=== PATIENT | female | born 1965 | race Caucasian/White ===

== ENCOUNTER → 2016-11-08 | Outpatient (CLI) | payer MEDICAID ==
--- NOTE | 2016-11-08 21:52 | CONS ---
DATE OF CONSULTATION: REASON FOR CONSULTATION: Sleep apnea. 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 The patient has been told by her spouse that she snores loud, and occasionally she stopped breathing and obviously there is a concern of her having obstructive sleep apnea. She is feeling more and more fatigued and sleepy during the day which is not difficult for her. She has a strong family history of obstructive sleep apnea and as her sister brother and father have NANDA. She goes to bed at 11:00 p.m., wakes up at 5:45 a.m. in the morning. She averages around 6 hours of sleep. On weekends she gets up at 8:30 a.m. She wakes up tired and sleepy. She does not fall asleep while driving or while doing her routine activities at the hospital. No restlessness in her lower extremities. No anxiety or depression. No claustrophobia. No sleepwalking or sleeptalking. No anxiety or panic attacks. PAST MEDICAL HISTORY: Hypertension, hyperlipidemia, and obesity. PAST SURGICAL HISTORY: Colonoscopy. DRUG ALLERGIES: Not known. Outpatient medication list includes: 1. Lisinopril. 2. Hydrochlorothiazide. 3. Simvastatin. 4. Metoprolol. SOCIAL HISTORY: Nonsmoker. No history of alcohol. No history of IV drugs. FAMILY HISTORY: Noncontributory. REVIEW OF SYSTEMS: Twelve-point review of systems was done and the positive findings were all mentioned above in the history of present illness. BP is 123/83, pulse 64, respirations 16, temperature 98.0, saturation 96% on room air. Weight is 205. Height is 64-1/2 inches. BMI is 34.6. Neck size 15-1/4. Edison score is 14. GENERAL APPEARANCE: Calm, comfortable. HEENT: Short neck, crowding posterior pharynx. Mallampati class IV. LUNGS: Clear to auscultation. HEART: Sounds are regular rate and rhythm. Normal S1, S2. ABDOMEN: Soft, nontender. No organomegaly. EXTREMITIES: No edema. No cyanosis, or clubbing. IMPRESSION: 1. Suspect obstructive sleep apnea, currently under investigation. 2. Mallampati class 4. 3. Edison score of 14. 4. Hypersomnia. 5. Hypertension. 6. Hyperlipidemia. PLAN: Proceed with a screening polysomnogram.
== END | disposition home or self-care (01) ==
LOC: SLEEP 15:26
PROVIDERS: ATTEND Internal Medicine Critical Care Medicine
DX: G47.33 Obstructive sleep apnea (adult) (pediatric) (principal); G47.10 Hypersomnia, unspecified; I10 Essential (primary) hypertension; E78.5 Hyperlipidemia, unspecified; Z79.899 Other long term (current) drug therapy
CPT/HCPCS: 99211

== ENCOUNTER → 2016-12-13 | Outpatient (CLI) | payer MEDICAID ==
--- NOTE | 2016-12-14 08:34 | WWHP ---
DATE OF SERVICE: 12/13/2016 CHIEF COMPLAINT: The patient is here for her routine gynecologic exam and mammogram. HPI: This is a 51-year-old, G2, P2 with an LMP of 11/22/16. She states periods have been very infrequent and had gone about 11 months since her last bleeding episode. She had about 4 months of hot flashes in 2016, but these seem to improve. She is status post tubal ligation. She is otherwise without complaints. PAST MEDICAL HISTORY: Chronic hypertension and elevated cholesterol. MEDICATIONS: 1. Lisinopril with hydrochlorothiazide 20/25 mg daily. 2. Simvastatin 40 mg daily. 3. Toprol XL 50 mg daily. ALLERGIES: No known drug allergies. 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 SOCIAL HISTORY: She denies tobacco and drug use and has 0 to 2 alcoholic drinks per week. 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 REVIEW OF SYSTEMS: She has lost about 10 pounds over the last year. She denies respiratory, cardiac, or GI problems. PHYSICAL EXAM: Blood pressure 110/75. Height 5 feet 5 inches. Weight 197 pounds. Temperature 97.9, pulse 57. This is a well-developed, well-nourished white female who is alert and oriented x3 in no acute distress. HEENT is within normal limits. NECK: Supple without mass or thyromegaly. CHEST AND LUNGS: Clear to auscultation. HEART: Regular rate and rhythm. Breasts are without mass or discharge. Axillary exam is negative for adenopathy. BACK: Negative for CVA tenderness. ABDOMEN: Soft, nontender, without palpable masses. PELVIC EXAM: Normal external genitalia. Cervix and vagina appear normal. There is no significant atrophy noted. There is no evidence of prolapse. No blood is seen within the vagina and there is no unusual discharge. There is no cervical motion tenderness. The uterus is midposition, nongravid size and nontender. There are no palpable adnexal masses or tenderness. Rectovaginal exam is negative for mass or tenderness and is negative for occult blood. EXTREMITIES: Nontender. IMPRESSION: 1. A 51-year-old perimenopausal female with infrequent menstrual bleeding and variable vasomotor symptoms during the past year. 2. Normal gynecologic exam. PLAN: 1. Pap smear was deferred since she had a normal one last year. 2. Self breast examination was discussed. 3. Mammogram will be done today. 4. The patient will keep a menstrual calendar and return if she is having problems. She was instructed to notify me if she is having more than one bleeding episode in one month, bleeding that lasts for more than 2 weeks, very heavy bleeding or if bleeding after 12 months of amenorrhea. She will also call if she is having moderate to severe vasomotor symptoms. 5. She will return in one year and p.r.n.
--- NOTE | 2016-12-15 07:37 | MM ---
Reason for exam: screening (asymptomatic). Last mammogram was performed 1 year and 2 months ago. History: Family history of breast cancer in mother at age 72 and premenopausal breast cancer in paternal aunt. Benign excisional biopsy of the right breast, 2000. Physical Findings: A clinical breast exam by your physician is recommended on an annual basis and results should be correlated with mammographic findings. MG 3D Screening Mammo W/Cad Bilateral CC and MLO view(s) were taken. Prior study comparison: October 20, 2015, bilateral MG screening mammo w CAD. October 08, 2014, bilateral MG screening mammo w CAD. The breast tissue is heterogeneously dense. This may lower the sensitivity of mammography. No significant changes when compared with prior studies. ASSESSMENT: Benign, BI-RAD 2 RECOMMENDATION: Routine screening mammogram of both breasts in 1 year.
== END | disposition home or self-care (01) ==
LOC: WWCWWP 15:55
PROVIDERS: ATTEND Obstetrics & Gynecology
DX: Z12.31 Encounter for screening mammogram for malignant neoplasm of breast (principal)
CPT/HCPCS: 77063; G0202

== ENCOUNTER → 2017-01-16 | Outpatient (CLI) | payer MEDICAID ==
--- NOTE | 2017-01-16 16:46 | ECHOS ---
DATE OF SERVICE: 01/16/2017 AGE: 51Y SEX: F HT: 65 WT: 195 lbs. Protocol Albert: Others: Stress echo Stage: 3 Dur. of Exercise: 8:15 *Heart Rate Blood Pressure *Rest: 72 Rest: 137/85 * *Max. Achieved: 150 Maximum BP: 181/87 85% PMHR: 142 100% PMHR: 167 *METS: 9.4 INDICATIONS: Chest pain. MEDICATIONS: Toprol, Lisinopril, aspirin, Zocor. Patient was exercised for a total period of 8 minutes and 15 seconds. Peak heart rate of 150 was achieved. Maximum blood pressure of 181/87 mmHg was noted. Resting EKG shows normal sinus rhythm with normal AR interval and QRS duration and normal ST-T waves. No ST-segment depression suggestive of ischemia is noted. The baseline echocardiographic images reveal normal left ventricular chamber size with normal left ventricular systolic function. In the immediate post-exercise period, normal increase in the wall thickness and contractility is noted. FINAL IMPRESSION: This stress echocardiographic study is negative for stress-induced ischemia. EKG portion of the stress test is not suggestive of ischemia. Patient's exercise tolerance is normal.
== END | disposition home or self-care (01) ==
LOC: RADNMMAIN 09:54
PROVIDERS: ATTEND Internal Medicine
DX: R07.9 Chest pain, unspecified (principal); I10 Essential (primary) hypertension
CPT/HCPCS: 93017; 93350

== ENCOUNTER → 2017-01-24 | Outpatient (CLI) | payer MEDICAID ==
--- NOTE | 2017-01-24 20:16 | PN ---
A 51-year-old female patient diagnosed having mild obstructive sleep apnea with an AHI of 10.8, worse during REM and worse in a supine body position. The patient underwent a successful CPAP titration. Today she is coming in for a CPAP compliancy followup. On today's evaluation, the patient feels better. She is not having any morning headaches. She is waking up more refreshed and she is benefiting from the treatment. I checked her CPAP machine and she is set at a pressure of 10 cm of water with a C-Flex of 3 and her 30-day compliance showed an average CPAP use of 6.9 hours per night. Leak factor is only at 2 L and her AHI while on treatment is down to 0.8. She has no specific complaints. She is compliant. She is maintaining her own body weight, although she is interested in weight loss. BP is 131/88, pulse 66, respirations 16, temperature 98.2 Weight is 201 and saturation 98% on room air. GENERAL APPEARANCE: Calm, comfortable. No acute distress. HEENT: Negative for JVD. There is no goiter or neck mass. LUNGS: Clear to auscultation. Heart sounds are regular rate and rhythm. Normal S1, S2. No S3. No S4. No murmurs. ABDOMEN: Soft, nontender. No organomegaly. EXTREMITIES: No edema. No cyanosis or clubbing. REVIEW OF SYSTEMS: Twelve-point review of systems was done and the positive findings were all mentioned above in the history of present illness. IMPRESSION: Symptomatic obstructive sleep apnea, mild, currently receiving successful continuous positive airway pressure therapy with a pressure of 10 cm of water. PLAN: 1. The patient is compliant with her treatment and she is having successful treatment. She is benefiting also from the treatment. Encourage weight loss. Will change the CPAP to an auto mode with a pressure minimum of 4 and maximum of 10 and this will allow the pressure patient to be treated with lower pressures should she lose weight in the future. 2. Will re-evaluate the patient in a year's time and make further adjustments accordingly. For now, her treatment is successful and will continue to follow.
== END | disposition home or self-care (01) ==
LOC: SLEEP 15:54
PROVIDERS: ATTEND Internal Medicine Critical Care Medicine
DX: G47.33 Obstructive sleep apnea (adult) (pediatric) (principal)

== ENCOUNTER → 2018-01-09 | Outpatient (CLI) | payer MEDICAID ==
[2018-01-09 14:24] VITALS: BP 118/78; PULSE 64; RESP 18; TEMP 97.4; BMI 31.9
--- NOTE | 2018-01-09 15:16 | P.HPOB ---
History of Present Illness H&P Date: 01/09/18 Chief Complaint: The patient is here for her routine gynecologic exam and mammogram. This is a 52-year-old G to P2 with an LMP of 12/07/2017. The patient was felt to be perimenopausal last year as her periods were spacing out. In the later part of 2016 she went approximately 5 months without vaginal bleeding and also had hot flashes. During September and October she had menstrual periods that were about monthly. In November she had a fairly normal menstrual flow during the 1st week of November. She then had spotting for 3 days in the middle of the month and 5 days a spotting at the end of the month. In December she had spotting from 12/07/2017 to 12/19/2017. She is not having any hot flashes at this time. She is status post tubal ligation. Review of Systems She has lost about 5 pounds over the last year. She has been trying to lose weight with diet and exercise. She denies respiratory, cardiac, or G.I. problems. Past Medical History Past Medical History: Hyperlipidemia, Hypertension Additional Past Medical History / Comment(s): Past OB history: 2 vaginal deliveries. 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 History of Any Multi-Drug Resistant Organisms: None Reported Past Surgical History: Tubal Ligation Additional Past Surgical History / Comment(s): Lipoma removed off right breast. Colonoscopy 2013. 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 - Past Family History Mother Family Medical History: Cancer (Breast cancer), Hypertension, Thyroid Disorder Father Family Medical History: Coronary Artery Disease (CAD), Diabetes Mellitus Medications and Allergies Home Medications Medication Instructions Recorded Confirmed Type Lisinopril-Hctz 20-25 mg 1 tab PO DAILY 01/09/18 01/09/18 History [Zestoretic 20-25] Simvastatin [Zocor] 40 mg PO HS 01/09/18 01/09/18 History Allergies Allergy/AdvReac Type Severity Reaction Status Date / Time No Known Allergies Allergy Verified 01/09/18 14:28 Exam - Vital Signs Vital signs: Vital Signs Temp Pulse Resp BP 01/09/18 14:17 97.4 F L 64 18 118/78 Intake and Output 01/09/18 01/09/18 01/09/18 06:59 14:59 22:59 Other: Weight 87.09 kg Height 5'5", BMI 32.0 This is a well-developed well-nourished white female who is alert and oriented times 3 in no acute distress. HEENT: Within normal limits. NECK: Supple without mass or thyromegaly. CHEST AND LUNGS: Clear to auscultation. HEART: Regular rate and rhythm. BREASTS: Are without mass or discharge. AXILLARY EXAM: Negative for adenopathy. BACK: Negative for CVA tenderness. ABDOMEN: Soft, nontender, without palpable masses. PELVIC EXAM: Normal external genitalia. Cervix and vagina appear normal. There is no unusual discharge. There is no evidence of prolapse. The uterus is midposition, nongravid size and nontender. There are no palpable adnexal masses or tenderness. RECTAL EXAM: rectovaginal exam is negative for mass or tenderness and is negative for occult blood. EXTREMITIES: Nontender. IMPRESSION: 1. 52-year-old perimenopausal female with normal gynecologic exam. 2. Previous oligomenorrhea with recent dysfunctional uterine bleeding. PLAN: 1. Pap smear was performed. 2. Self breast examination was discussed. 3. Screening mammogram will be done today. 4. The patient will be scheduled for an endometrial biopsy. If benign findings , consider cyclic progestin therapy. 5. The patient will continue to keep a menstrual calendar. 6. She will return in one year and PRN.
--- NOTE | 2018-01-11 09:06 | MM ---
Reason for exam: screening (asymptomatic). Last mammogram was performed 1 year and 1 month ago. History: Family history of breast cancer in mother at age 72 and premenopausal breast cancer in paternal aunt. Benign excisional biopsy of the right breast, 2000. Physical Findings: A clinical breast exam by your physician is recommended on an annual basis and results should be correlated with mammographic findings. MG 3D Screening Mammo W/Cad Bilateral CC and MLO view(s) were taken. Prior study comparison: December 13, 2016, bilateral MG 3d screening mammo w/cad. October 20, 2015, bilateral MG screening mammo w CAD. There are scattered fibroglandular densities. No significant changes when compared with prior studies. ASSESSMENT: Benign, BI-RAD 2 RECOMMENDATION: Routine screening mammogram of both breasts in 1 year.
== END ==
LOC: WWCWWP 14:03
PROVIDERS: ATTEND Obstetrics & Gynecology
DX: Z12.31 Encounter for screening mammogram for malignant neoplasm of breast (principal)
CPT/HCPCS: 77063; 77067

== ENCOUNTER → 2018-01-17 | Day surgery (SDC) | payer MEDICAID ==
[2018-01-17 12:40] VITALS: BP 125/78; PULSE 57; RESP 18; TEMP 96.2; BMI 31.8
--- NOTE | 2018-01-17 13:12 | P.PCN ---
Date of Procedure: 01/17/18 Preoperative Diagnosis: Dysfunctional uterine bleeding Postoperative Diagnosis: Dysfunctional uterine bleeding Procedure(s) Performed: Endometrial biopsy Anesthesia: none Surgeon: Vinnie Padilla Estimated Blood Loss (ml): 0 Pathology: other (Endometrial tissue) Condition: stable Disposition: same day Indications for Procedure: This is a 52-year-old who has experienced dysfunctional uterine bleeding during the past 2 months. This was after 5 months of amenorrhea and then 2 months of monthly bleeding. Most recently she had light vaginal bleeding from 12/07/2017 - 12/19/2017. She is status post tubal ligation. Operative Findings: The uterus is mid positioned and non-gravid size. The uterus sounded to 8 cm. There are no palpable adnexal masses or tenderness. Description of Procedure: The endometrial biopsy procedure was described to the patient. All of her questions were answered. The patient was placed in the lithotomy position. Bimanual examination was performed. The uterus is mid-positioned and is non- gravid size. The speculum was inserted and the cervix and vagina were prepped with betadine solution. There is no abnormal discharge or blood noted. The anterior lip of the cervix was grasped within Allys Clamp. The 3mm endometrial biopsy curette was placed to the fundus without difficulty. The uterus sounded to 8 cm. A [id number] rotating motion was used and a scant amount of tissue was obtained. This was repeated times 1 and a small amount of tissue was obtained. The tissue was sent for pathological examination. The patient tolerated the procedure well. There were no complications. The post procedure blood pressure was 127/86. Post procedure instructions were given to the patient. If the pathological findings are benign, we'll consider observation or possible cyclic progestogen treatment.
--- NOTE | 2018-01-23 17:19 | P.PN ---
Progress Note - Text Progress Note Date: 01/23/18 Endometrial biopsy results from 01/17/2018 were discussed with the patient by phone. The pathology findings were benign with ciliated cell metaplasia. I discussed this with Dr. Mckeon, the pathologist, who states this is not cancerous or precancerous. We will follow the patient conservatively without intervention at this time. She will return if she is having recurrent abnormal vaginal bleeding. If this is the case will consider referral for hysteroscopy and D&C.
== END ==
LOC: WWCWWP 11:59
PROVIDERS: ATTEND Obstetrics & Gynecology
DX: N85.8 Other specified noninflammatory disorders of uterus (principal); Z98.51 Tubal ligation status
CPT/HCPCS: 88305

== ENCOUNTER → 2019-03-05 | Outpatient (CLI) | payer MEDICAID ==
[2019-03-05 14:42] VITALS: BP 152/98; PULSE 72; RESP 18; TEMP 98.2; BMI 33.7
--- NOTE | 2019-03-05 16:21 | P.HPOB ---
History of Present Illness H&P Date: 03/05/19 Chief Complaint: The patient is here for her routine gynecologic exam and ma mmogram. This is a 53-year-old with an LMP of 12/07/2018. Menstrual periods have been in frequent over the past 2 years. She underwent an endometrial biopsy on 01/17/2018 because of dysfunctional uterine bleeding and this was benign. Since then she has had 2 episodes of spotting in March and May 2018. She also had one normal menstrual period on 12/07/2018. Hot flashes have been progressively getting worse and are fairly severe. She is also noticed mood problems and can cry very easily. She denies any suicidal ideation. She is otherwise without complaints. Review of Systems She is getting about 11 pounds over the last year. She denies respiratory, cardiac, or G.I. problems. Past Medical History Past Medical History: Hyperlipidemia, Hypertension Additional Past Medical History / Comment(s): Past OB history: 2 vaginal deliveries. 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 History of Any Multi-Drug Resistant Organisms: None Reported Past Surgical History: Tubal Ligation Additional Past Surgical History / Comment(s): Lipoma removed off right breast. Colonoscopy 2013. 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 - Past Family History Mother Family Medical History: Cancer, Hypertension, Thyroid Disorder Additional Family Medical History / Comment(s): Breast CA. Father Family Medical History: Coronary Artery Disease (CAD), Diabetes Mellitus Medications and Allergies Home Medications Medication Instructions Recorded Confirmed Type Lisinopril-Hctz 20-25 mg 1 tab PO DAILY 01/09/18 03/05/19 History [Zestoretic 20-25] Simvastatin [Zocor] 40 mg PO HS 01/09/18 03/05/19 History Allergies Allergy/AdvReac Type Severity Reaction Status Date / Time No Known Allergies Allergy Verified 03/05/19 14:42 Exam Vital Signs Temp Pulse Resp BP Pulse Ox 03/05/19 14:34 98.2 F 72 18 152/98 98 Intake and Output 03/05/19 03/05/19 03/05/19 06:59 14:59 22:59 Other: Weight 92.079 kg Height 5'5", weight 203 pounds, BMI 33.8. This is a well-developed well-nourished heavyset white female who is alert and oriented times 3 in no acute distress. HEENT: Within normal limits. NECK: Supple without mass or thyromegaly. CHEST AND LUNGS: Clear to auscultation. HEART: Regular rate and rhythm. BREASTS: Are without mass or discharge. AXILLARY EXAM: Negative for adenopathy. BACK: Negative for CVA tenderness. ABDOMEN: Soft, nontender, without palpable masses. PELVIC EXAM: Normal external genitalia with minimal atrophy. Cervix and vagina appear normal with minimal atrophy. There is no unusual discharge. There is no evidence of prolapse. The uterus is midposition, nongravid size and nontender. There are no palpable adnexal masses or tenderness. RECTAL EXAM: rectovaginal exam is negative for mass or tenderness and is negative for occult blood. EXTREMITIES: Nontender. IMPRESSION: 1. Perimenopausal female with worsening vasomotor symptoms and mood disorder as sociated with the menopause. 2. Oligomenorrhea consistent with perimenopause PLAN: 1. Pap smear was deferred since she had a negative Pap smear on 01/09/2018. 2. Breast awareness was discussed with the patient. 3. Screening mammogram will be done today. 4. Osteoporosis prevention was discussed. I have stressed the importance of adequate calcium, vitamin D and regular exercise. Recommended amounts of calcium and vitamin D were also discussed. 5. We have had a long discussion regarding menopausal symptoms and possible treatments. She understands that for milder symptoms we would like to avoid medications and hormonal treatment. She feels her symptoms are quite severe and would like to have some type of treatment. We discussed options such as hormone replacement therapy, clonidine and SSRI treatment. Based on her symptoms I feel she would be a good candidate for low-dose fluoxetine (Brisdelle) 7.5 mg PO daily. We have discussed possible side effects including weight gain and suicidal thoughts. She was instructed to call if she has any problems such as worsening symptoms or suicidal thoughts. The electronic prescription will be sent to [facility] pharmacy in [facility]. 6. She will continue to keep an menstrual calendar and cause menstrual problems. 7. She was instructed to follow-up in approximately one month for a recheck, one year for her routine gynecologic exam, and PRN.
--- NOTE | 2019-03-06 10:01 | MM ---
Reason for exam: screening (asymptomatic). Last mammogram was performed 1 year and 2 months ago. History: Family history of breast cancer in mother at age 72 and premenopausal breast cancer in paternal aunt. Benign excisional biopsy of the right breast, 2000. Physical Findings: A clinical breast exam by your physician is recommended on an annual basis and results should be correlated with mammographic findings. MG 3D Screening Mammo W/Cad Bilateral CC and MLO view(s) were taken. Prior study comparison: January 09, 2018, bilateral MG 3d screening mammo w/cad. December 13, 2016, bilateral MG 3d screening mammo w/cad. There are scattered fibroglandular densities. There is no discrete abnormality. No significant changes when compared with prior studies. ASSESSMENT: Negative, BI-RAD 1 RECOMMENDATION: Routine screening mammogram of both breasts in 1 year.
== END | disposition home or self-care (01) ==
LOC: WWCWWP 14:04
PROVIDERS: ATTEND Obstetrics & Gynecology
DX: Z12.31 Encounter for screening mammogram for malignant neoplasm of breast (principal)
CPT/HCPCS: 77063; 77067

== ENCOUNTER → 2020-03-31 | Outpatient (CLI) | payer MEDICAID ==
[2020-03-31 16:10] VITALS: BP 128/87; PULSE 74; RESP 18; TEMP 98.5
--- NOTE | 2020-03-31 16:59 | P.HPOB ---
History of Present Illness H&P Date: 03/31/20 Chief Complaint: The patient is here for her routine gynecologic exam. This is a 54-year-old with an LMP of December 2019. The patient's prior menstrual period was 10 months before her LMP. She states she has never gone 12 4 months without a menstrual period. Her last 3 menstrual periods have been about 10 months apart. She does have mild hot flashes which are tolerable. Her LMP was like a light period and not prolonged. She is status post tubal ligation. Review of Systems The patient has lost 3 pounds over the last year. She denies respiratory, cardiac, or G.I. problems. Past Medical History Past Medical History: Hyperlipidemia, Hypertension Additional Past Medical History / Comment(s): Vitiligo since she was a teenager. Past OB history: 2 vaginal deliveries. 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 History of Any Multi-Drug Resistant Organisms: None Reported Past Surgical History: Tubal Ligation Additional Past Surgical History / Comment(s): Lipoma removed off right breast. Colonoscopy 2013. 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 - Past Family History Mother Family Medical History: Cancer, Hypertension, Thyroid Disorder Additional Family Medical History / Comment(s): Breast CA. Father Family Medical History: Coronary Artery Disease (CAD), Diabetes Mellitus Medications and Allergies Home Medications Medication Instructions Recorded Confirmed Type Lisinopril-Hctz 20-25 mg 1 tab PO DAILY 01/09/18 03/31/20 History [Zestoretic 20-25] Simvastatin [Zocor] 40 mg PO HS 01/09/18 03/31/20 History Calcium Carbonate [Calcium] 600 mg PO DAILY 03/31/20 03/31/20 History Cholecalciferol [Vitamin D3 (25 3,000 unit PO DAILY 03/31/20 03/31/20 History Mcg = 1000 Iu)] Multivitamin [Multivitamins Adult 1 tab PO DAILY 03/31/20 03/31/20 History Gummies] Allergies Allergy/AdvReac Type Severity Reaction Status Date / Time No Known Allergies Allergy Verified 03/31/20 16:02 Exam Vital Signs Temp Pulse Resp BP Pulse Ox 03/31/20 16:06 98.5 F 74 18 128/87 99 Intake and Output 03/31/20 03/31/20 03/31/20 06:59 14:59 22:59 Other: Weight 90.718 kg Height 5 feet 3 inches, weight 200 pounds, BMI 35.4. This is a well-developed well-nourished heavyset white female who is alert and oriented times 3 in no acute distress. HEENT: Within normal limits. NECK: Supple without mass or thyromegaly. CHEST AND LUNGS: Clear to auscultation. HEART: Regular rate and rhythm. BREASTS: Are without mass or discharge. AXILLARY EXAM: Negative for adenopathy. BACK: Negative for CVA tenderness. ABDOMEN: Soft, nontender, without palpable masses. PELVIC EXAM: Normal external genitalia with minimal atrophy. Cervix and vagina appear normal and minimal atrophy. There is no unusual discharge. There is no evidence of prolapse. The uterus is midposition, nongravid size and nontender. There are no palpable adnexal masses or tenderness. RECTAL EXAM: Rectovaginal exam is negative for mass or tenderness and is negative for occult blood. EXTREMITIES: Nontender. Skin: There are areas of nonpigmented skin most noticeable on the inner thighs and feet bilaterally. This is consistent with vitiligo and she states it is been stable for many years. IMPRESSION: 1. 4-year-old perimenopausal female with normal gynecologic exam. 2. Oligomenorrhea 2 years status post a benign endometrial biopsy in 2018. PLAN: 1. Pap smear was performed. 2. Self breast awareness was discussed with the patient. 3. Screening mammogram is scheduled for 05/05/2020 and the order slip was given to the patient for this. 4. Osteoporosis prevention was discussed. I have stressed the importance of adequate calcium, vitamin D and regular exercise. Recommended amounts of calcium and vitamin D were also discussed. 5. The patient will continue to keep a menstrual calendar and call she's having menstrual problems including dysfunctional uterine bleeding prolonged menstrual periods or frequent menstrual periods. She will also call if she is having worsening vasomotor symptoms that are causing problems for her. If oligomenorrhea persists, we will consider getting a pelvic ultrasound to check endometrial thickness next year. 6. She was advised to return in one year for her annual well woman exam.
--- NOTE | 2020-04-07 17:38 | P.PN ---
Progress Note - Text Progress Note Date: 04/07/20 OUTPATIENT FOLLOW-UP NOTE TEST(S)/RESULTS: Pap smear from 03/31/2020 was negative. METHOD OF NOTIFICATION: The patient was notified by phone. PATIENT COMMENTS: The patient is happy to hear this result. DIAGNOSIS: Negative Pap smear. DISCUSSION: [] PLAN: She is scheduled for mammogram on 05/05/2020. She is aware of this. She was advised to return in one year for her annual well woman exam.
== END | disposition home or self-care (01) ==
LOC: WWCWWP 15:50
PROVIDERS: ATTEND Obstetrics & Gynecology
DX: Z53.9 Procedure and treatment not carried out, unspecified reason (principal)

== ENCOUNTER 2020-07-10 05:49 | Observation (INO) | payer MEDICAID ==
[2020-07-10] MEDS ORDERED: MORPHINE SULFATE 4 MG/ML SYRINGE IVP STA (06:06)
[2020-07-10] MEDS ORDERED: SODIUM CHLORIDE 0.9% 500 ML 500 ML IV ONE (06:07)
--- NOTE | 2020-07-10 06:10 | ED ---
Abdominal Pain HPI - General Chief Complaint: Abdominal Pain Stated Complaint: Abdominal pain Time Seen by Provider: 07/10/20 05:59 Source: patient Mode of arrival: ambulatory Limitations: no limitations - History of Present Illness Initial Comments: 54yo female presenting for cc of mid abdominal pain. pt states since monday she has had stabbing abdominal pain that does not radiate in the middle of abdomen near umbilicus. She endorses nausea however denies vomiting, diarrhea, constipation, fevers, dark or bloody stools, chest pain, shortness of breath. Denies urinary symptoms. Patient states that Monday when the pain originally began it was more intermittent and has now become more consistent over the past 6 hours, more constant in nature. Patient denies experiencing this in the past. Denies additional complaints or hx of diverticulitis. Patient appears uncomfortable with change of position. Patient BP elevated on arrival, otherwise vital signs are within acceptable limits and patient does not appear toxic. - Related Data Home Medications Medication Instructions Recorded Confirmed Lisinopril-Hctz 20-25 mg 1 tab PO DAILY 01/09/18 03/31/20 [Zestoretic 20-25] Simvastatin [Zocor] 40 mg PO HS 01/09/18 03/31/20 Calcium Carbonate [Calcium] 600 mg PO DAILY 03/31/20 03/31/20 Cholecalciferol [Vitamin D3 (25 3,000 unit PO DAILY 03/31/20 03/31/20 Mcg = 1000 Iu)] Multivitamin [Multivitamins Adult 1 tab PO DAILY 03/31/20 03/31/20 Gummies] Allergies Allergy/AdvReac Type Severity Reaction Status Date / Time No Known Allergies Allergy Verified 07/10/20 05:59 Review of Systems ROS Statement: Those systems with pertinent positive or pertinent negative responses have been documented in the HPI. ROS Other: All systems not noted in ROS Statement are negative. Past Medical History Past Medical History: Hyperlipidemia, Hypertension Additional Past Medical History / Comment(s): Vitiligo since she was a teenager. Past OB history: 2 vaginal deliveries. 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 History of Any Multi-Drug Resistant Organisms: None Reported Past Surgical History: Tubal Ligation Additional Past Surgical History / Comment(s): Lipoma removed off right breast. Colonoscopy 2013. Past Anesthesia/Blood Transfusion Reactions: No Reported Reaction Past Psychological History: No Psychological Hx Reported Smoking Status: Never smoker Past Alcohol Use History: Occasional Past Drug Use History: None Reported - Past Family History Mother Family Medical History: Cancer, Hypertension, Thyroid Disorder Additional Family Medical History / Comment(s): Breast CA. Father Family Medical History: Coronary Artery Disease (CAD), Diabetes Mellitus General Exam - General Exam Comments Initial Comments: General: The patient is awake and alert, in no distress Eye: +3 mm pupils are equal, round and reactive to light, extra-ocular movements are intact. No nystagmus. There is normal conjunctiva bilaterally. No signs of icterus. Cardiovascular: There is a regular rate and rhythm. No murmur, rub or gallop is appreciated. Respiratory: Lungs are clear to auscultation, respirations are non-labored, breath sounds are equal. No wheezes, stridor, rales, or rhonchi. Gastrointestinal: Soft, non-distended, periumbilical abdominal pain to palpation of the abdomen, slight McBurneys point tenderness. abdomen without masses or organomegaly noted. There is no rebound or guarding present. Musculoskeletal: Normal ROM, no tenderness. Strength 5/5. Sensation intact. Radial pulses equal bilaterally 2+. Neurological: A&O x 3. CN II-XII intact grossly, There are no obvious motor or sensory deficits. Coordination appears grossly intact. Speech is normal. Skin: Skin is warm and dry and no rashes or lesions are noted. Psychiatric: Cooperative, appropriate mood & affect, normal judgment. Limitations: no limitations Course Vital Signs 07/10/20 05:56 Temperature 98.5 F Pulse Rate 78 Respiratory 16 Rate Blood Pressure 155/86 O2 Sat by Pulse 100 Oximetry Medical Decision Making - Medical Decision Making 54-year-old feel presenting for 5 days of periumbilical pain. Worsening today more constant. Her umbilical slight right lower quadrant tenderness on exam. No leukcytosis. Pt does not appear toxic. Blood cultures pending. CT + appendicitis. No complication seen at this time. Patient will be admitted to general surgeon Dr. Whiting who is agreeable to admission recommending abx and will perform laparoscopic procedure during admission. Patient agreeable to care plan as well as admission. - Lab Data Result diagrams: 07/10/20 06:32 07/10/20 06:32 Lab Results 07/10/20 07/10/20 07/10/20 Range/Units 06:32 06:32 06:32 WBC 8.7 (3.8-10.6) k/uL RBC 4.52 (3.80-5.40) m/uL Hgb 13.2 (11.4-16.0) gm/dL Hct 39.5 (34.0-46.0) % MCV 87.4 (80.0-100.0) fL MCH 29.1 (25.0-35.0) pg MCHC 33.3 (31.0-37.0) g/dL RDW 12.4 (11.5-15.5) % Plt Count 191 (150-450) k/uL Neutrophils % 81 % Lymphocytes % 12 % Monocytes % 6 % Eosinophils % 1 % Basophils % 0 % Neutrophils # 7.0 (1.3-7.7) k/uL Lymphocytes # 1.0 (1.0-4.8) k/uL Monocytes # 0.5 (0-1.0) k/uL Eosinophils # 0.1 (0-0.7) k/uL Basophils # 0.0 (0-0.2) k/uL Sodium 137 (137-145) mmol/L Potassium 4.2 (3.5-5.1) mmol/L Chloride 100 (98-107) mmol/L Carbon Dioxide 30 (22-30) mmol/L Anion Gap 7 mmol/L BUN 17 (7-17) mg/dL Creatinine 0.76 (0.52-1.04) mg/dL Est GFR (CKD-EPI)AfAm >90 (>60 ml/min/1.73 sqM) Est GFR (CKD-EPI)NonAf 89 (>60 ml/min/1.73 sqM) Glucose 147 H (74-99) mg/dL Plasma Lactic Acid Adriel 1.8 (0.7-2.0) mmol/L Calcium 10.3 H (8.4-10.2) mg/dL Total Bilirubin 0.6 (0.2-1.3) mg/dL AST 20 (14-36) U/L ALT 19 (4-34) U/L Alkaline Phosphatase 71 (38-126) U/L Total Protein 7.2 (6.3-8.2) g/dL Albumin 4.6 (3.5-5.0) g/dL Amylase 48 (30-110) U/L Lipase 74 (23-300) U/L Disposition Clinical Impression: Appendicitis, Periumbilical abdominal pain, Nausea Disposition: ADMITTED IP TO THIS [facility] Condition: Stable Is patient prescribed a controlled substance at d/c from ED?: No Referrals: None,Stated [Primary Care Provider] - 1-2 days Time of Disposition: 07:14 Decision to Admit Reason: Admit from EC Decision Date: 07/10/20 Decision Time: 07:14
[2020-07-10] MEDS: SODIUM CHLORIDE 0.9% 1,000 ML IV SCH ×2 (06:35→20:14)
[2020-07-10] MEDS: ONDANSETRON 4 MG/2 ML VIAL IVP STA ×2 (06:36→11:07)
[2020-07-10 06:41] LABS: Basophils % (A) 0 %; Eosinophils # (A) 0.1 k/uL (0-0.7); Eosinophils % (A) 1 %; HCT 39.5 % (34.0-46.0); HGB 13.2 gm/dL (11.4-16.0); Lymphocytes % (A) 12 %; MCH 29.1 pg (25.0-35.0); MCHC 33.3 g/dL (31.0-37.0); MCV 87.4 fL (80.0-100.0); Mean Platelet Volume 9.1; Monocytes # (A) 0.5 k/uL (0-1.0); Monocytes % (A) 6 %; Neutrophils % (A) 81 %; Platelet Count 191 k/uL (150-450); RBC 4.52 m/uL (3.80-5.40); RDW 12.4 % (11.5-15.5); WBC 8.7 k/uL (3.8-10.6)
[2020-07-10 06:50] LABS: ALT 19 U/L (4-34); AST 20 U/L (14-36); African American GFR (CKD) >90 (>60 ml/min/1.73 sqM); Albumin 4.6 g/dL (3.5-5.0); Alkaline Phosphatase 71 U/L (38-126); Amylase 48 U/L (30-110); Anion Gap 7 mmol/L; Blood Urea Nitrogen 17 mg/dL (7-17); Calcium 10.3 mg/dL (8.4-10.2); Carbon Dioxide 30 mmol/L (22-30); Chloride 100 mmol/L (98-107); Glucose 147 mg/dL (74-99); Non-African American GFR(CKD) 89 (>60 ml/min/1.73 sqM); Potassium 4.2 mmol/L (3.5-5.1); Sodium 137 mmol/L (137-145); Total Bilirubin 0.6 mg/dL (0.2-1.3); Total Protein 7.2 g/dL (6.3-8.2)
[2020-07-10] MEDS ORDERED: PIPERACILLIN-TAZOBACTAM 3.375 GM in SODIUM CHLORIDE 0.9% 100 ML IVPB STA (07:14)
--- NOTE | 2020-07-10 07:18 | CT ---
EXAMINATION TYPE: CT abdomen pelvis w con DATE OF EXAM: 07/10/2020 HISTORY: Abd pain, periumbilical pain since Monday. CT DLP: 1549mGycm Automated Exposure Control for Dose Reduction was Utilized. CONTRAST: CT scan of the abdomen and pelvis is performed without oral but with IV Contrast, patient injected wi th 100 mL of Isovue 300. COMPARISON: CT abdomen and pelvis April 19, 2012 FINDINGS: LUNG BASES: No significant abnormality is appreciated. LIVER/GB: No significant abnormality is appreciated. PANCREAS: No significant abnormality is seen. SPLEEN: No significant abnormality is seen. ADRENALS: No significant abnormality is seen. KIDNEYS: Symmetric corticomedullary uptake and excretion from both kidneys without hydronephrosis see n bilaterally. BOWEL: Few diverticula in the proximal sigmoid colon. Appendix is abnormal ascending from cecum as is dilated up to 12 mm axial image 45, there is mild inflammatory change and prominent feeding vessels noted near axial image 47 along central or mesenteric aspect of the appendix. No free air. No well-fo rmed fluid collection or drainable abscess. UTERUS/ADNEXA: Anteverted uterus projects to the left of midline. Occasional scattered pelvic phlebol iths. LYMPH NODES: No greater than 1cm abdominal or pelvic lymph nodes are appreciated. OSSEOUS STRUCTURES: Mild facet arthropathy lower lumbar spine. OTHER: Mild calcified plaque abdominal aorta extends into branch vessels. IMPRESSION: CT findings consistent with a mild uncomplicated acute appendicitis as detailed above. Cortical results communicated to ordering ER physician via telephone at time of dictation. A Document Only message has been documented for Iam Ocampo in the [facility] Result system on 07/10/2020 7:15 AM, Message ID [id number].
[2020-07-10] MEDS ORDERED: NALOXONE 0.4 MG/ML 1 ML VIAL IV PRN (07:20)
[2020-07-10 07:29] LABS: Appearance,Urine Clear (Clear); Bilirubin,Urine Negative (Negative); Blood,Urine Negative (Negative); Color,Urine Light Yellow; Glucose,Urine (UA) Negative (Negative); Ketones,Urine Negative (Negative); Leukocyte Esterase,Urine Negative (Negative); Nitrite,Urine Negative (Negative); PH, Urine 6.5 (5.0-8.0); Protein,Urine Negative (Negative); Specific Gravity,Urine 1.018 (1.001-1.035); Urobilinogen,Urine <2.0 mg/dL (<2.0)
[2020-07-10] MEDS ORDERED: HEPARIN SODIUM,PORCINE 5,000 UNIT/ML 1 ML VIAL ONE (11:03)
[2020-07-10] MEDS ORDERED: ONDANSETRON 4 MG/2 ML VIAL ONE (11:05)
[2020-07-10] MEDS ORDERED: IV FLUID CONTINUATION 1,000 ML IV ONE (11:07)
[2020-07-10] MEDS ORDERED: DEXAMETHASONE SOD PHOS (MDV) 100 MG/10 ML VIAL IVP ONE (11:08)
[2020-07-10] MEDS ORDERED: HEPARIN SODIUM,PORCINE 5,000 UNIT/ML 1 ML VIAL SQ ONE (12:04)
--- NOTE | 2020-07-10 12:08 | P.GSHP ---
History of Present Illness H&P Date: 07/10/20 Chief Complaint: Acute appendicitis 54-year-old female presents complaining of abdominal pain that began Jero. Initially more mid abdominal now right lower quadrant. No nausea or vomiting or bowel changes. No fevers. White blood cell count is normal. CAT scan was perf ormed which showed evidence of acute appendicitis. - Review of Systems Comment: The patient denies any acute changes in vision or hearing, no dysphagia or odyn ophagia, no chest pain or shortness of breath, no dysuria or hematuria, no headache, no runny nose, no rectal bleeding or melena, no unexplained weight loss Past Medical History Past Medical History: Hyperlipidemia, Hypertension Additional Past Medical History / Comment(s): Vitiligo since she was a teenager. Past OB history: 2 vaginal deliveries. 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 History of Any Multi-Drug Resistant Organisms: None Reported Past Surgical History: Tubal Ligation Additional Past Surgical History / Comment(s): Lipoma removed off right breast. Colonoscopy 2013. Past Anesthesia/Blood Transfusion Reactions: Postoperative Nausea & Vomiting (PONV) Smoking Status: Never smoker - Past Family History Mother Family Medical History: Cancer, Hypertension, Thyroid Disorder Additional Family Medical History / Comment(s): Breast CA @ age 73. Hypothyroid. Still living. Father Family Medical History: Congestive Heart Failure (CHF), Coronary Artery Disease (CAD), Diabetes Mellitus, Renal Disease Additional Family Medical History / Comment(s): in Nov 2019. Medications and Allergies Home Medications Medication Instructions Recorded Confirmed Type Lisinopril-Hctz 20-25 mg 1 tab PO DAILY 01/09/18 07/10/20 History [Zestoretic 20-25] Simvastatin [Zocor] 40 mg PO HS 01/09/18 07/10/20 History Calcium Carbonate [Calcium] 600 mg PO DAILY 03/31/20 07/10/20 History Cholecalciferol [Vitamin D3 (25 2,000 unit PO DAILY 03/31/20 07/10/20 History Mcg = 1000 Iu)] Multivitamin [Multivitamins Adult 1 tab PO DAILY 03/31/20 07/10/20 History Gummies] Aspirin [Adult Low Dose Aspirin EC] 81 mg PO DAILY 07/10/20 07/10/20 History Minocycline HCl [Minocin] 100 mg PO HS 07/10/20 07/10/20 History Allergies Allergy/AdvReac Type Severity Reaction Status Date / Time No Known Allergies Allergy Verified 07/10/20 07:33 Surgical - Exam Vital Signs Temp Pulse Resp BP Pulse Ox 98.5 F 78 16 155/86 100 07/10/20 05:56 07/10/20 05:56 07/10/20 05:56 07/10/20 05:56 07/10/20 05:56 Physical exam: General: Well-developed, well-nourished HEENT: Normocephalic, sclerae nonicteric Abdomen: Right lower quadrant tenderness, nondistended Extremities: No edema Neuro: Alert and oriented Results - Labs 07/10/20 06:32 07/10/20 06:32 Abnormal Lab Results - Last 24 Hours (Table) 07/10/20 Range/Units 06:32 Glucose 147 H (74-99) mg/dL Calcium 10.3 H (8.4-10.2) mg/dL Diabetes panel 07/10/20 Range/Units 06:32 Sodium 137 (137-145) mmol/L Potassium 4.2 (3.5-5.1) mmol/L Chloride 100 (98-107) mmol/L Carbon Dioxide 30 (22-30) mmol/L BUN 17 (7-17) mg/dL Creatinine 0.76 (0.52-1.04) mg/dL Glucose 147 H (74-99) mg/dL Calcium 10.3 H (8.4-10.2) mg/dL AST 20 (14-36) U/L ALT 19 (4-34) U/L Alkaline Phosphatase 71 (38-126) U/L Total Protein 7.2 (6.3-8.2) g/dL Albumin 4.6 (3.5-5.0) g/dL Calcium panel 07/10/20 Range/Units 06:32 Calcium 10.3 H (8.4-10.2) mg/dL Albumin 4.6 (3.5-5.0) g/dL Pituitary panel 07/10/20 Range/Units 06:32 Sodium 137 (137-145) mmol/L Potassium 4.2 (3.5-5.1) mmol/L Chloride 100 (98-107) mmol/L Carbon Dioxide 30 (22-30) mmol/L BUN 17 (7-17) mg/dL Creatinine 0.76 (0.52-1.04) mg/dL Glucose 147 H (74-99) mg/dL Calcium 10.3 H (8.4-10.2) mg/dL Adrenal panel 07/10/20 Range/Units 06:32 Sodium 137 (137-145) mmol/L Potassium 4.2 (3.5-5.1) mmol/L Chloride 100 (98-107) mmol/L Carbon Dioxide 30 (22-30) mmol/L BUN 17 (7-17) mg/dL Creatinine 0.76 (0.52-1.04) mg/dL Glucose 147 H (74-99) mg/dL Calcium 10.3 H (8.4-10.2) mg/dL Total Bilirubin 0.6 (0.2-1.3) mg/dL AST 20 (14-36) U/L ALT 19 (4-34) U/L Alkaline Phosphatase 71 (38-126) U/L Total Protein 7.2 (6.3-8.2) g/dL Albumin 4.6 (3.5-5.0) g/dL Assessment and Plan (1) Appendicitis Narrative/Plan: Will proceed with laparoscopic appendectomy, possible open appendectomy at this time. Risks of bleeding, infection, dehiscence, hernia, abscess, conversion to an open procedure, bladder bowel or ureteral injury. She understands and wishes to proceed. Current Visit: Yes Status: Acute Code(s): K37 - UNSPECIFIED APPENDICITIS SNOMED Code(s): 74244460
[2020-07-10] MEDS ORDERED: LIDOCAINE 1% INJ 10MG/ML (20 ML MDV) ONE (12:18)
[2020-07-10] MEDS ORDERED: SUCCINYLCHOLINE CHLORIDE 100 MG/5 ML SYR IV ONE (12:18)
[2020-07-10] MEDS ORDERED: PROPOFOL 10 MG/ML 100 ML VIAL IV ONE (12:18)
[2020-07-10] MEDS ORDERED: fentaNYL (PF) 50 MCG/ML 2 ML AMP ONE (12:18)
[2020-07-10] MEDS ORDERED: ROCURONIUM BROMIDE 10 MG/ML 5 ML VIAL IV ONE (12:18)
[2020-07-10] MEDS ORDERED: MIDAZOLAM 2 MG/2 ML VIAL ONE (12:18)
[2020-07-10] MEDS ORDERED: ceFAZolin 1,000 MG VIAL IVPB ONE (12:45)
[2020-07-10] MEDS ORDERED: BUPIVACAINE (PF) 0.25% 30 ML VIAL SQ ONE (12:45)
[2020-07-10] MEDS ORDERED: HYDROcodone/APAP 5-325MG 1 EACH TAB PO PRN (13:14)
[2020-07-10] MEDS ORDERED: ACETAMINOPHEN TAB 325 MG TAB PO PRN (13:14)
--- NOTE | 2020-07-10 13:20 | P.OP ---
Date of Procedure: 07/10/20 Procedure(s) Performed: PREOPERATIVE DIAGNOSIS: Acute appendicitis POSTOPERATIVE DIAGNOSIS: Same PROCEDURE: Laparoscopic appendectomy SURGEON: Johanne EBL: Minimal ANESTHESIA: General COMPLICATIONS: None OPERATIVE PROCEDURE: The patient was brought and placed on the operating table in the supine position. The patient was placed under general anesthesia. The abdomen was prepped and draped in the usual sterile fashion. A small vertical infraumbilical incision was made. The fascia was retracted anteriorly with [place] forceps. The Veress needle was advanced into the peritoneal cavity. The saline drop test was normal. Insufflation took place to 15 mmHg. A 5 mm trocar was then placed. An additional 5 mm suprapubic trocar was placed under direct visualization as well as a 12 mm left lower quadrant trocar under direct visualization. The appendix was inspected. It was acutely inflamed. The mesoa ppendix was dissected. The base of the appendix was divided using a linear 45 mm intestinal stapler. The mesentery itself was dissected using the LigaSure device. The area was then irrigated. No further purulence or bleeding was seen. The appendix was brought out of the peritoneal cavity through the left lower quadrant trocar site using an Endo Catch bag. The fascia at the 12 mm site was closed using a [id number] 0 Vicryl stitch. The skin at all 3 sites was closed using 4-0 Monocryl sutures. Skin glue was then applied. DISPOSITION: Stable to recovery room
[2020-07-10] MEDS: HYDROmorphone 0.5 MG/0.5 ML SYRINGE IVP PRN ×4 (13:40→23:00)
[2020-07-10] MEDS: PIPERACILLIN-TAZOBACTAM 3.375 GM in SODIUM CHLORIDE 0.9% 100 ML IVPB SCH ×2 (15:56→23:00)
[2020-07-10] MEDS: FAMOTIDINE 20 MG TAB PO SCH (20:13)
[2020-07-10] MEDS: DOCUSATE 100 MG CAP PO SCH (20:13)
[2020-07-10] MEDS: HEPARIN SODIUM,PORCINE 5,000 UNIT/ML 1 ML VIAL SQ SCH (20:14)
[2020-07-11] MEDS: HYDROmorphone 0.5 MG/0.5 ML SYRINGE IVP PRN (04:41)
[2020-07-11] MEDS: HEPARIN SODIUM,PORCINE 5,000 UNIT/ML 1 ML VIAL SQ SCH ×2 (04:42→13:04)
[2020-07-11 08:26] VITALS: RESP 16
[2020-07-11] MEDS: PIPERACILLIN-TAZOBACTAM 3.375 GM in SODIUM CHLORIDE 0.9% 100 ML IVPB SCH (08:31)
[2020-07-11] MEDS ORDERED: ONDANSETRON 4 MG/2 ML VIAL IVP PRN (08:36)
[2020-07-11] MEDS: FAMOTIDINE 20 MG TAB PO SCH (08:42)
[2020-07-11] MEDS: DOCUSATE 100 MG CAP PO SCH (08:42)
--- NOTE | 2020-07-11 09:55 | P.PN ---
Progress Note - Text Progress Note Date: 07/11/20 The patient feels better. She is requesting home. On exam vital signs are stable. Abdomen is soft. Incisions is clean and intact. Status post laparoscopic Appendectomy. Patient will be discharged home today.
[2020-07-11 12:36] VITALS: BP 146/93; PULSE 57; TEMP 97.9
== END 2020-07-11 13:05 | disposition home or self-care (01) ==
LOC: EC 05:49 → 6PED 07:36
PROVIDERS: ADMIT Surgery; ATTEND Surgery
DX: K35.80 Unspecified acute appendicitis (principal); I10 Essential (primary) hypertension; E78.5 Hyperlipidemia, unspecified; L80 Vitiligo; Z79.899 Other long term (current) drug therapy; Z79.82 Long term (current) use of aspirin; Z82.49 Family history of ischemic heart disease and other diseases of the circulatory system; Z80.3 Family history of malignant neoplasm of breast; Z83.3 Family history of diabetes mellitus; Z83.49 Family history of other endocrine, nutritional and metabolic diseases
CPT/HCPCS: 44970; 96361; 96374; 96375; 99285; 36415; 81025 ×2; 88304; 80053; 82150; 83605; 83690; 85025; 81003; 87040; 74177; G0378 ×2; J2543 ×2; J2250; J2270; J1644 ×2; J2405 ×2; J0690; J2001; J3010; J1100; J0330; J2704; J1170 ×2; Q9967

== ENCOUNTER → 2021-03-01 | Outpatient (CLI) | payer MEDICAID ==
--- NOTE | 2021-03-01 14:40 | MR ---
EXAMINATION TYPE: MR knee RT wo con DATE OF EXAM: 03/01/2021 COMPARISON: Outside right knee x-ray 3 weeks ago HISTORY: Right Knee pain, Outer left side of Knee x 30 days TECHNIQUE: Multiplanar, multisequence imaging of the right knee is performed without IV contrast. FINDINGS: MEDIAL MENISCUS: Anterior and posterior horns are intact without tear. LATERAL MENISCUS: Anterior and posterior horns are intact without tear. CRUCIATE LIGAMENTS: The anterior and posterior cruciate ligaments are intact and unremarkable. COLLATERAL LIGAMENTS: The medial collateral ligament and lateral collateral ligament complex are inta ct and unremarkable. EXTENSOR MECHANISM: Visualized quadriceps and patellar tendons are intact. EFFUSION: No significant suprapatellar joint effusion. POPLITEAL CYST: Small popliteal/ferro cyst. TRICOMPARTMENT SPACES: Mild to moderate tricompartment joint space loss. No significant spurring. CARTILAGE: Thinning of articular cartilage medial tibiofemoral compartment. No significant malacia pa tella. BONE MARROW SIGNAL: Some heterogeneous increased T2 signal involving the medial aspect of the medial aspect distal femoral condyle. 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 No occult fracture. OTHER: No additional significant abnormality is appreciated. IMPRESSION: 1. Mild to moderate tricompartment generative changes greatest medial tibiofemoral compartment. 2. Small popliteal cyst. 3. Area of osseous contusion and/or abnormal bone marrow edema medial aspect distal medial femoral co ndyle could reflect product of altered walking mechanics. Related to pain.
== END | disposition home or self-care (01) ==
LOC: RADMRIMAIN 13:10
PROVIDERS: ATTEND Orthopaedic Surgery
DX: M17.11 Unilateral primary osteoarthritis, right knee (principal); M71.21 Synovial cyst of popliteal space [Baker], right knee

== ENCOUNTER 2021-04-27 11:44 | Day surgery (SDC) | payer MEDICAID ==
[2021-04-21 05:23] LABS: Basophils % (A) 1 %; Eosinophils # (A) 0.1 k/uL (0-0.7); Eosinophils % (A) 2 %; HCT 38.2 % (34.0-46.0); HGB 12.4 gm/dL (11.4-16.0); Lymphocytes # (A) 1.1 k/uL (1.0-4.8); Lymphocytes % (A) 22 %; MCH 28.7 pg (25.0-35.0); MCHC 32.6 g/dL (31.0-37.0); MCV 88.1 fL (80.0-100.0); Mean Platelet Volume 9.6; Monocytes # (A) 0.3 k/uL (0-1.0); Monocytes % (A) 6 %; Neutrophils # (A) 3.3 k/uL (1.3-7.7); Neutrophils % (A) 68 %; Platelet Count 179 k/uL (150-450); RBC 4.33 m/uL (3.80-5.40); RDW 13.6 % (11.5-15.5)
[2021-04-21 05:41] LABS: Potassium 4.2 mmol/L (3.5-5.1)
[2021-04-23 17:34] VITALS: BMI 34.1
--- NOTE | 2021-04-26 09:04 | HP ---
HISTORY AND PHYSICAL CHIEF COMPLAINT: Right knee pain. 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 She was doing some weighted squats. She felt a pop. She notes persistent pain along with giving way ever since. She has tried medications in addition to an injection without much relief. She notes daily pain that limits her. PAST MEDICAL HISTORY: Significant for hypercholesterolemia and hypertension. PAST SURGICAL HISTORY: Significant for appendectomy. CURRENT MEDICATIONS: Lisinopril, aspirin, simvastatin. ALLERGIES: She denies drug allergies. FAMILY HISTORY: Significant for cancer and diabetes. SOCIAL HISTORY: Negative for current tobacco or alcohol use. REVIEW OF SYSTEMS: Sixteen-point review of systems otherwise reviewed and is noncontributory. PHYSICAL EXAMINATION: On examination, the patient is approximately 5 foot 5, 205 pounds of endomorphic habitus. HEENT exam is nonfocal. Neck is supple. She has painless passive motion of right hip. Straight leg raise is negative. Active motion right knee -8 to 115 degrees of flexion. She has a mild effusion. She is tender about the medial joint line. Collaterals are stable, Hao is negative, Diana's elicits medial pain. She does have an antalgic gait pattern. Her distal neurovascular exam appears intact in the right lower extremity. MRI report 03/01/2021 of the right knee shows edema involving medial femoral condyle in addition to irregularity of the medial femoral condyle cartilage. IMPRESSION: 1. Internal derangement right knee with possible medial femoral condyle chondral injury. 2. Right knee synovitis. RECOMMENDATIONS: I talked to the patient at length regarding her condition and treatment options. At this point, she continues to have significant pain and mechanical symptoms despite previous conservative measures. After thorough discussion, she opts to proceed with surgery. We will plan to proceed with arthroscopic evaluation with possible medial femoral chondrectomy in addition to synovectomy. Risks, benefits were discussed at length in layman's terms. We will likely perform that as an outpatient procedure. MMODL / IJN: [id number] /
[~2021-04-27 11:44] MED LIST: DEXAMETHASONE SOD PHOSPHATE 4 MG/ML 1 ML VIAL IV ONE; LACTATED RINGERS 1,000 ML IV SCH; MIDAZOLAM 2 MG/2 ML VIAL IV PRN; ONDANSETRON 4 MG/2 ML VIAL IVP ONE; SCOPOLAMINE 1.5MG/72HR PATCH TRANSDERM ONE
[2021-04-27 12:13] VITALS: RESP 16; TEMP 97.1
[2021-04-27 12:25] LABS: Glucose,Whole Blood 121 mg/dL (75-99)
[2021-04-27] MEDS ORDERED: LIDOCAINE 1% (10MG/ML) FOR IV START INTRADERMA ONE (12:25)
[2021-04-27] MEDS ORDERED: PROPOFOL 10 MG/ML 20 ML VIAL IV ONE (13:04)
[2021-04-27] MEDS ORDERED: LIDOCAINE 1% INJ 10MG/ML (20 ML MDV) ONE (13:04)
[2021-04-27] MEDS ORDERED: MIDAZOLAM 2 MG/2 ML VIAL ONE (13:04)
[2021-04-27] MEDS ORDERED: KETOROLAC 15 MG/ML 1 ML VIAL ONE (13:04)
[2021-04-27] MEDS ORDERED: fentaNYL (PF) 50 MCG/ML 2 ML AMP ONE (13:04)
--- NOTE | 2021-04-27 13:50 | P.OP ---
Date of Procedure: 04/27/21 Preoperative Diagnosis: Right knee internal derangement Postoperative Diagnosis: Right knee synovitis/grade 2 chondral injury distal medial portion medial femoral condyle Procedure(s) Performed: Right knee arthroscopic synovectomy of the medial, lateral, and patellofemoral compartments/medial femoral chondrectomy Anesthesia: BLANCAA Surgeon: Matthew Paul Estimated Blood Loss (ml): 10 Pathology: none sent Condition: stable Disposition: PACU Indications for Procedure: The patient's a 55-year-old female presents with progressive right knee pain and mechanical symptoms for the past several months despite conservative measures. A discussion of the risks and benefits of operative intervention versus continued conservative measures was made with patient. Proceed with surgery. Operative risks to include infection, neurovascular injury, development of blood clots, possible incomplete resolution of symptoms possible worsening symptoms and need for subsequent procedures was discussed. Informed consent was obtained. Operative Findings: As below Description of Procedure: The patient was brought to the operating room, and after induction of general anesthesia examined the right knee. Collaterals were stable, Hao was negative, and posterior drawer was negative. The right lower extremity was prepped and draped in a normal fashion. A superior lateral portal was made through a 3 mm skin incision superior and lateral to the patella. This was used for outflow. A lateral portal was made through a 5 mm vertical skin incision lateral to the patella tendon above the joint line. Diagnostic arthroscopy was performed. On inspection of the medial compartment, the medial meniscus was stable and intact. There was a grade 2 chondral injury involving the distal medial portion medial femoral condyle was a loose chondral flap. This debrided back to a stable base with a motorized shaver. Reactive synovitis involving the anterior medial, anterolateral, and patellofemoral compartment was debrided with a motorized shaver. On inspection of the notch, the anterior cruciate ligament appeared to be intact. On inspection of the lateral compartment, the lateral meniscus was stable and intact. On inspection of the patellofemoral articulation, there was chondral fibrillation however no loose chondral fragments. The gutters were clear debris. The knee was then thoroughly irrigated. The portals were closed with Steri-Strips. A sterile dressing was applied in addition to a compression stocking. The patient was awoken from general anesthesia and transferred to recovery room in good condition. Blood loss was estimated at 10 mL. No complications were incurred.
[2021-04-27] MEDS: HYDROmorphone 0.5 MG/0.5 ML SYRINGE IVP PRN ×3 (13:57→14:20)
[2021-04-27] MEDS ORDERED: HYDROcodone/APAP 5-325MG 1 EACH TAB PO ONE (15:20)
[2021-04-27] MEDS ORDERED: HYDROcodone/APAP 5-325MG 1 EACH TAB ONE (15:20)
[2021-04-27 16:24] VITALS: BP 143/89; PULSE 62
== END 2021-04-27 16:26 | disposition home or self-care (01) ==
LOC: OR 11:44
PROVIDERS: ATTEND Orthopaedic Surgery
DX: M65.9 Synovitis and tenosynovitis, unspecified (principal); I10 Essential (primary) hypertension; E78.00 Pure hypercholesterolemia, unspecified; Z79.899 Other long term (current) drug therapy; Z79.82 Long term (current) use of aspirin; M23.91 Unspecified internal derangement of right knee; E78.5 Hyperlipidemia, unspecified; E11.9 Type 2 diabetes mellitus without complications
CPT/HCPCS: 80051; 85025; 29876; J2250; J1100; J0690; J2405; J2001; J3010; J1885; J2704; J1170

== ENCOUNTER → 2021-05-11 | Outpatient (CLI) | payer MEDICAID ==
[2021-05-11 15:29] VITALS: BP 142/93; PULSE 90; RESP 18; TEMP 98.2
--- NOTE | 2021-05-11 16:42 | P.HPOB ---
History of Present Illness H&P Date: 05/11/21 Chief Complaint: The patient is here for her routine gynecologic exam and ma mmogram. This is a 55-year-old with an LMP of December 2019. The patient is without gynecologic complaints and denies any postmenopausal bleeding. Hot flashes have improved and are now minimal. Review of Systems The patient has gained 6 pounds over the last year. She denies respiratory, cardiac, or G.I. problems. Past Medical History Past Medical History: Diabetes Mellitus, Hyperlipidemia, Hypertension, Musculoskeletal Disorder, Skin Disorder, Sleep Apnea/CPAP/BIPAP Additional Past Medical History / Comment(s): Type 2 diabetes. Vitiligo since she was a teenager; dermatitis face. Rt knee pain. Uses CPAP. Minor varicose veins. 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 History of Any Multi-Drug Resistant Organisms: None Reported Past Surgical History: Appendectomy, Orthopedic Surgery, Tubal Ligation Additional Past Surgical History / Comment(s): Lipoma removed off right breast. Colonoscopy 2013(next after 10yr). Right knee arthroscopic surgery. 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. - Past Family History Mother Family Medical History: Cancer, Hypertension, Thyroid Disorder Additional Family Medical History / Comment(s): Breast CA @ age 73. Hypothyroid. Still living. Father Family Medical History: Congestive Heart Failure (CHF), Coronary Artery Disease (CAD), Diabetes Mellitus, Renal Disease Additional Family Medical History / Comment(s): in Nov 2019. Medications and Allergies Home Medications Medication Instructions Recorded Confirmed Type Lisinopril-Hctz 20-25 mg 1 tab PO DAILY 01/09/18 05/11/21 History [Zestoretic 20-25] Simvastatin [Zocor] 40 mg PO DAILY 01/09/18 05/11/21 History Cholecalciferol [Vitamin D3 (25 125 mcg PO DAILY 03/31/20 05/11/21 History Mcg = 1000 Iu)] Multivitamin [Multivitamins Adult 1 tab PO DAILY 03/31/20 05/11/21 History Gummies] Aspirin [Adult Low Dose Aspirin EC] 81 mg PO DAILY 07/10/20 05/11/21 History Minocycline HCl [Minocin] 100 mg PO DAILY 07/10/20 05/11/21 History Acetaminophen [Tylenol Extra 500 - 1,000 mg PO DIRECTED PRN 04/23/21 05/11/21 History Strength] Calcium Carbonate/Vitamin D3 1 each PO DAILY 04/23/21 05/11/21 History [Calcium 600-Vit D3 62.5 Mcg (2,500 Iu)] metFORMIN HCL [Glucophage] 500 mg PO BID 04/23/21 05/11/21 History HYDROcodone/APAP 5-325MG [Vonore 1 tab PO Q6HR PRN #21 tab 04/27/21 05/11/21 Rx 5-325] Allergies Allergy/AdvReac Type Severity Reaction Status Date / Time No Known Allergies Allergy Verified 05/11/21 15:22 Exam Vital Signs Temp Pulse Resp BP Pulse Ox 05/11/21 15:24 98.2 F 90 18 142/93 97 Intake and Output 05/11/21 05/11/21 05/11/21 06:59 14:59 22:59 Other: Weight 93.44 kg Height 5 feet 5 inches, weight 206 pounds, BMI 34.3. This is a well-developed well-nourished white female who is alert and oriented times 3 in no acute distress. HEENT: Within normal limits. NECK: Supple without mass or thyromegaly. CHEST AND LUNGS: Clear to auscultation. HEART: Regular rate and rhythm. BREASTS: Are without mass or discharge. AXILLARY EXAM: Negative for adenopathy. BACK: Negative for CVA tenderness. ABDOMEN: Soft, nontender, without palpable masses. PELVIC EXAM: Normal external genitalia with minimal atrophy. Cervix and vagina appear normal with minimal atrophy. There is no unusual discharge. There is no evidence of prolapse. The uterus is midposition, nongravid size and nontender. There are no palpable adnexal masses or tenderness. RECTAL EXAM: Rectovaginal exam is negative for mass or tenderness and is negative for occult blood. EXTREMITIES: Nontender. IMPRESSION: 1. 55-year-old menopausal female with normal gynecologic exam. PLAN: 1. Pap smear was deferred since she had a normal one on 04/07/2020. 2. Self breast awareness was discussed with the patient. 3. Screening mammogram was done today. 4. Osteoporosis prevention was discussed. I have stressed the importance of adequate calcium, vitamin D and regular exercise. Recommended amounts of calcium and vitamin D were also discussed. We will plan on doing a bone density test at age 58. 5. She was instructed to call if she develops any vaginal bleeding and this would be considered abnormal. 6. She was advised to return in one year for her annual well woman exam.
== END ==
LOC: WWCWWP 15:01
PROVIDERS: ATTEND Obstetrics & Gynecology
DX: Z12.31 Encounter for screening mammogram for malignant neoplasm of breast (principal); Z01.419 Encounter for gynecological examination (general) (routine) without abnormal findings; E11.9 Type 2 diabetes mellitus without complications; E78.5 Hyperlipidemia, unspecified; I10 Essential (primary) hypertension; Z80.3 Family history of malignant neoplasm of breast; Z79.84 Long term (current) use of oral hypoglycemic drugs; Z79.899 Other long term (current) drug therapy
CPT/HCPCS: 77063; 77067

== ENCOUNTER → 2022-04-25 | Outpatient (CLI) | payer MEDICAID ==
--- NOTE | 2022-04-26 04:01 | MR ---
EXAMINATION TYPE: MR ankle RT wo con DATE OF EXAM: 04/25/2022 COMPARISON: None HISTORY: Rt ankle pain and swelling x6-9 months Multiplanar multiecho imaging of the right ankle with no contrast. Achilles tendon is intact. Plantar fascia is intact. The ankle mortise is anatomic. Collateral ligame nts appear intact. There is some minimal soft tissue edema at the medial malleolus. The medial and la teral flexor tendons appear intact. The subtalar joint is intact. There is increased joint fluid around the ankle and subtalar joint and talonavicular joint. No fracture line seen. No evidence of bone edema. IMPRESSION: There is ankle joint effusion that is consistent with some nonspecific synovitis. No fracture seen. N o evidence of ligament or tendon tear.
== END | disposition home or self-care (01) ==
LOC: RADMRIMAIN 21:45
PROVIDERS: ATTEND Orthopaedic Surgery Foot and Ankle Surgery
DX: M21.6X1 Other acquired deformities of right foot (principal); M76.821 Posterior tibial tendinitis, right leg; M25.471 Effusion, right ankle

== ENCOUNTER → 2022-05-17 | Outpatient (CLI) | payer MEDICAID ==
[2022-05-17 16:05] VITALS: BP 119/80; PULSE 95; RESP 18; TEMP 98.7
--- NOTE | 2022-05-17 16:46 | P.HPOB ---
History of Present Illness H&P Date: 05/17/22 Chief Complaint: The patient is here for her routine gynecologic exam and ma mmogram. This is a 56-year-old with an LMP of December 2019. The patient is without gynecologic complaints and denies any postmenopausal bleeding. Hot flashes are minimal and tolerable. She no longer takes paroxetine for the hot flashes. Review of Systems The patient's weight has been stable over the last year. She denies respiratory, cardiac, or G.I. problems. Past Medical History Past Medical History: Diabetes Mellitus, Hyperlipidemia, Hypertension, Musculoskeletal Disorder, Skin Disorder, Sleep Apnea/CPAP/BIPAP Additional Past Medical History / Comment(s): Type 2 diabetes. Vitiligo since she was a teenager; dermatitis face. Rt knee pain. Uses CPAP. Minor varicose veins. 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 History of Any Multi-Drug Resistant Organisms: None Reported Past Surgical History: Appendectomy, Orthopedic Surgery, Tubal Ligation Additional Past Surgical History / Comment(s): Lipoma removed off right breast. Colonoscopy 2013(next after 10yr). Right knee arthroscopic surgery. 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 She enjoys golfing. - Past Family History Mother Family Medical History: Cancer, Hypertension, Thyroid Disorder Additional Family Medical History / Comment(s): Breast CA @ age 73. Hypothyroid. Still living. Father Family Medical History: Congestive Heart Failure (CHF), Coronary Artery Disease (CAD), Diabetes Mellitus, Renal Disease Additional Family Medical History / Comment(s): in Nov 2019. Medications and Allergies Home Medications Medication Instructions Recorded Confirmed Type Lisinopril-Hctz 20-25 mg 1 tab PO DAILY 01/09/18 05/17/22 History [Zestoretic 20-25] Cholecalciferol [Vitamin D3 (25 125 mcg PO DAILY 03/31/20 05/17/22 History Mcg = 1000 Iu)] Multivitamin [Multivitamins Adult 1 tab PO DAILY 03/31/20 05/17/22 History Gummies] Aspirin [Adult Low Dose Aspirin EC] 81 mg PO DAILY 07/10/20 05/17/22 History Minocycline HCl [Minocin] 50 mg PO DAILY 07/10/20 05/17/22 History Acetaminophen [Tylenol Extra 500 - 1,000 mg PO DIRECTED PRN 04/23/21 05/17/22 History Strength] Calcium Carbonate/Vitamin D3 1 each PO DAILY 04/23/21 05/17/22 History [Calcium 600-Vit D3 62.5 Mcg (2,500 Iu)] Dulaglutide [Trulicity] 1.5 ml IJ WEEKLY 05/17/22 05/17/22 History Rosuvastatin Calcium [Crestor] 40 mg PO DAILY 05/17/22 05/17/22 History Ubidecarenone [Co Q-10] 300 mg PO DAILY 05/17/22 05/17/22 History Allergies Allergy/AdvReac Type Severity Reaction Status Date / Time No Known Allergies Allergy Verified 05/17/22 15:55 Exam Vital Signs Temp Pulse Resp BP Pulse Ox 05/17/22 16:02 98.7 F 95 18 119/80 96 Intake and Output 05/17/22 05/17/22 05/17/22 06:59 14:59 22:59 Other: Weight 92.986 kg Height 5 feet 5 inches, weight 205 pounds, BMI 34.1. This is a well-developed well-nourished white female who is alert and oriented times 3 in no acute distress. Skin: She has several areas of hypo-pigmented skin consistent with vitiligo. HEENT: Within normal limits. NECK: Supple without mass or thyromegaly. CHEST AND LUNGS: Clear to auscultation. HEART: Regular rate and rhythm. BREASTS: Are without mass or discharge. AXILLARY EXAM: Negative for adenopathy. BACK: Negative for CVA tenderness. ABDOMEN: Soft, nontender, without palpable masses. PELVIC EXAM: Normal external genitalia with mild atrophy. The vitiligo does not seem to affect the majority of the vulva. The inner thighs do have large areas of hypopigmentation. Cervix and vagina appear normal with mild atrophy. There is no unusual discharge. There is no evidence of prolapse. The uterus is midposition, nongravid size and nontender. There are no palpable adnexal masses or tenderness. RECTAL EXAM: Rectovaginal exam is negative for mass or tenderness and is negative for occult blood. EXTREMITIES: Nontender. IMPRESSION: 1. 56-year-old menopausal female with normal gynecologic exam. PLAN: 1. Pap smear cotest was performed. 2. Self breast awareness was discussed with the patient. We have also discussed symptoms associated with inflammatory breast cancer. 3. Screening mammogram will be done today. 4. Osteoporosis prevention was discussed. We will plan on having her get a bone density test at age 58. 5. She has completed her Covid vaccination series and did receive 2 boosters. 6. She was advised to return in one year for her annual well woman exam.
--- NOTE | 2022-05-18 16:26 | MM ---
Reason for Exam: Screening (asymptomatic). Last screening mammogram was performed 12 month(s) ago. Patient History: Menarche at age 11. First Full-Term at age 26. Postmenopausal. Patient has history of breast feeding. 2000, Benign Excisional Biopsy on the right side. Paternal aunt had breast cancer, age 36. Mother had breast cancer, age 72. Risk Values: Nichole 5 year model risk: 3.1%. NCI Lifetime model risk: 17.0%. Prior Study Comparison: 03/05/2019 Bilateral Screening Mammogram, [facility]. 05/05/2020 Bilateral Screening Mammogram, [facility]. 05/11/2021 Bilateral Screening Mammogram, [facility]. Tissue Density: There are scattered fibroglandular densities. Findings: Analyzed By CAD. There is no suspicious group of microcalcifications or new suspicious mass in either breast. No significant change from prior exams. Overall Assessment: Benign, BI-RAD 2 Management: Screening Mammogram of both breasts in 1 year. A clinical breast exam by your physician is recommended on an annual basis and results should be correlated with mammographic findings. Electronically signed and approved by: Arley Ríos D.O.
== END ==
LOC: WWCWWP 15:52
PROVIDERS: ATTEND Obstetrics & Gynecology
DX: Z12.31 Encounter for screening mammogram for malignant neoplasm of breast (principal); Z01.419 Encounter for gynecological examination (general) (routine) without abnormal findings; E11.9 Type 2 diabetes mellitus without complications; E78.5 Hyperlipidemia, unspecified; I10 Essential (primary) hypertension; Z78.0 Asymptomatic menopausal state
CPT/HCPCS: 77063; 77067

== ENCOUNTER → 2022-07-26 | Outpatient (CLI) | payer MEDICAID ==
--- NOTE | 2022-07-26 16:49 | P.SLEEP ---
History of Present Illness H&P Date: 07/26/22 This is a very pleasant 56-year-old female patient was coming in for a follow-up regarding obstructive sleep apnea. My last encounter on this patient was on 01/24/2017. 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 She is known to have obstructive sleep apnea mild in severity and she has been very much committed to CPAP therapy at her baseline AHI was at 10.8. The patient has utilized CPAP therapy over the years and her treatment has been extremely successful. She currently has a APAP machine which is set at a pressure of 4/10. Note that the patient utilized the machine every night without interruption. She is very much committed. I did a compliancy evaluation and over the past 30 days, the patient was found to have a compliancy of more than 4 hours achieving 28 out of 30 and the patient has been achieving average uses about 7 hours of CPAP use per night. Average pressure delivered by the machine from 9.6 cm of water and the leak is in order of 2 L/m and her AHI down to 1.0. She is using a hernandez fx nasal pillow and she is also looking for alternatives. No hypersomnia or sleepiness. No weight gain. No new onset comorbidities other than an infection with Covid 19. She has hypertension and diabetes mellitus. She is able to function appropriately. Has CPAP machine is functional. His sleep quality is good. No nighttime seizures. No nighttime chest pain or shortness of breath. Notices his lower extremities. No anxiety. No depression. Review of Systems All systems: negative (Obstructive sleep apnea which is adequately treated for now) Past Medical History Past Medical History: Diabetes Mellitus, Hyperlipidemia, Hypertension, Musculoskeletal Disorder, Skin Disorder, Sleep Apnea/CPAP/BIPAP Additional Past Medical History / Comment(s): Type 2 diabetes. Vitiligo since she was a teenager; dermatitis face. Rt knee pain. Uses CPAP. Minor varicose veins. 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 History of Any Multi-Drug Resistant Organisms: None Reported Past Surgical History: Appendectomy, Orthopedic Surgery, Tubal Ligation Additional Past Surgical History / Comment(s): Lipoma removed off right breast. Colonoscopy 2013(next after 10yr). Right knee arthroscopic surgery. Past Anesthesia/Blood Transfusion Reactions: Motion Sickness, Postoperative Nausea & Vomiting (PONV) Past Psychological History: No Psychological Hx Reported Smoking Status: Never smoker Past Alcohol Use History: Occasional (0-5 per week) Past Drug Use History: None Reported - Past Family History Mother Family Medical History: Cancer, Hypertension, Thyroid Disorder Additional Family Medical History / Comment(s): Breast CA @ age 73. Hypothyroid. Still living. Father Family Medical History: Congestive Heart Failure (CHF), Coronary Artery Disease (CAD), Diabetes Mellitus, Renal Disease Additional Family Medical History / Comment(s): in Nov 2019. Medications and Allergies Home Medications Medication Instructions Recorded Confirmed Type Lisinopril-Hctz 20-25 mg 1 tab PO DAILY 01/09/18 05/17/22 History [Zestoretic 20-25] Cholecalciferol [Vitamin D3 (25 125 mcg PO DAILY 03/31/20 05/17/22 History Mcg = 1000 Iu)] Multivitamin [Multivitamins Adult 1 tab PO DAILY 03/31/20 05/17/22 History Gummies] Aspirin [Adult Low Dose Aspirin EC] 81 mg PO DAILY 07/10/20 05/17/22 History Minocycline HCl [Minocin] 50 mg PO DAILY 07/10/20 05/17/22 History Acetaminophen [Tylenol Extra 500 - 1,000 mg PO DIRECTED PRN 04/23/21 05/17/22 History Strength] Calcium Carbonate/Vitamin D3 1 each PO DAILY 04/23/21 05/17/22 History [Calcium 600-Vit D3 62.5 Mcg (2,500 Iu)] Dulaglutide [Trulicity] 1.5 ml IJ WEEKLY 05/17/22 05/17/22 History Rosuvastatin Calcium [Crestor] 40 mg PO DAILY 05/17/22 05/17/22 History Ubidecarenone [Co Q-10] 300 mg PO DAILY 05/17/22 05/17/22 History Allergies Allergy/AdvReac Type Severity Reaction Status Date / Time No Known Allergies Allergy Verified 05/17/22 15:55 Physical Exam BP is 121/81 with a pulse of 81 and the respiration of 16 and the temperature is 97.3 and the patient's [place] score is at 7. Her body mass index is 33.7. The patient appeared well nourished and normally developed. Vital signs as documented. Head exam is unremarkable. No scleral icterus or corneal arcus noted. Neck is without jugular venous distension, thyromegaly, or carotid bruits. Carotid upstrokes are brisk bilaterally. Lungs are clear to auscultation and percussion. Cardiac exam reveals the PMI to be normally sized and situated. Rhythm is regular. First and second heart sounds normal. No murmurs, rubs or gallops. Abdominal exam reveals normal bowel sounds, no masses, no organomegaly and no aortic enlargement. Extremities are nonedematous and both femoral and pedal pulses are normal.Examination of the skin revealed no evidence of significant rashes, suspicious appearing nevi or other concerning lesions.Neurologically, the patient is awake and alert and the patient does not have any focal neurological deficit. Cranial nerves are essentially intact. Assessment and Plan Plan: Obstructive sleep apnea, mild in severity at baseline with an AHI of 10.8, successfully treated with APAP. The patient is clinically stable. The patient is well treated and she is very compliant without any residual hypersomnia or sleepiness. Chronic hypersomnia, recovered History of Covid 19 infection Hypertension Diabetes mellitus Plan Treatment continues to be extubated successful The patient's CPAP machine is functional and needs no replacement We'll refill all of her supplies and I took the opportunity to offer this pa tient today airfit P30i as an alternative nasal pillow Maintain regular sleep schedule Maintain good sleep hygiene measures No other issues for now. We'll keep the same machine and the mask interface and will continue to see her back in follow-up in 2 years time. Sleep Note - Sleep Note Sleep Note: Temperature: Pulse Rate: Respiratory Rate: Blood Pressure: SpO2: Height: Weight: BMI: Neck Circumference:
== END ==
LOC: SLEEP 14:21
PROVIDERS: ATTEND Internal Medicine Critical Care Medicine
DX: G47.33 Obstructive sleep apnea (adult) (pediatric) (principal); E11.9 Type 2 diabetes mellitus without complications; E78.5 Hyperlipidemia, unspecified; I10 Essential (primary) hypertension; Z99.89 Dependence on other enabling machines and devices; Z86.16 Personal history of COVID-19
CPT/HCPCS: 99211

== ENCOUNTER → 2023-08-22 | Outpatient (CLI) | payer MEDICAID ==
--- NOTE | 2023-08-26 00:51 | MR ---
EXAMINATION TYPE: MR knee LT wo con DATE OF EXAM: 08/22/2023 COMPARISON: None. HISTORY: Left knee pain. TECHNIQUE: Multiplanar, multisequence imaging of the left knee is performed without contrast. FINDINGS: Medial meniscus: Intact. Medial compartment cartilage: Partial-thickness thinning of the medial compartment cartilage. Medial collateral ligament: Intact. Lateral meniscus: Intact. Lateral compartment cartilage: Partial-thickness thinning of the lateral femoral condyle cartilage. Lateral collateral ligament: Intact. Patellofemoral alignment: Normal. Patellofemoral compartment cartilage: Normal. Extensor mechanism: Normal. Anterior cruciate ligament: Intact. Posterior cruciate ligament: Intact. Bone marrow: Medial femoral condyle subchondral signal changes suggestive for avascular necrosis; no collapse. Amorphous low T1 signal and high T2 signal within the medial femoral condyle, consistent wi th insufficiency fracture. Soft tissues: Small joint effusion. No Puentes's cyst. Neurovascular: Normal. IMPRESSION: 1. 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 2. Medial and lateral tibiofemoral compartment chondromalacia
== END | disposition home or self-care (01) ==
LOC: RADMRIMAIN 20:15
PROVIDERS: ATTEND Orthopaedic Surgery
DX: M87.052 Idiopathic aseptic necrosis of left femur (principal); M94.262 Chondromalacia, left knee

== ENCOUNTER 2023-08-29 05:54 | Day surgery (SDC) | payer MEDICAID ==
[~2023-08-29 05:54] MED LIST changes: -DEXAMETHASONE SOD PHOSPHATE 4 MG/ML 1 ML VIAL IV ONE; -MIDAZOLAM 2 MG/2 ML VIAL IV PRN; -ONDANSETRON 4 MG/2 ML VIAL IVP ONE; -SCOPOLAMINE 1.5MG/72HR PATCH TRANSDERM ONE
[2023-08-29 06:47] LABS: Glucose,Whole Blood 151 mg/dL (70-110)
[2023-08-29] MEDS ORDERED: ONDANSETRON 4 MG/2 ML VIAL IVP ONE (06:50)
[2023-08-29] MEDS ORDERED: ONDANSETRON 4 MG/2 ML VIAL ONE (06:51)
[2023-08-29 06:59] VITALS: RESP 16; TEMP 98
[2023-08-29] MEDS ORDERED: PROPOFOL 10 MG/ML 20 ML VIAL IV ONE (07:07)
--- NOTE | 2023-08-29 07:24 | P.PCN ---
Date of Procedure: 08/29/23 Procedure(s) Performed: BRIEF HISTORY: Patient is a 58-year-old pleasant female scheduled for an elective colonoscopy as a part of screening for colon cancer. Her last coloscopy was 10 years ago. PROCEDURE PERFORMED: Colonoscopy with biopsy. PREOPERATIVE DIAGNOSIS: Screening for colon cancer. IV sedation per Anesthesia. PROCEDURE: After informed consent was obtained, the patient, was brought into the endoscopy unit. IV sedation was administered by Anesthesia under continuous monitoring. Digital rectal examination was normal. Initially the Olympus CF-160 flexible video colonoscope was then inserted in the rectum, gradually advanced into the cecum without any difficulty. Careful examination was performed as the scope was gradually being withdrawn. Ileocecal valve and the appendiceal orifice were visualized and appeared normal. Prep was excellent. Mucosa of the cecum, as a millimeter polyp that was removed by cold biopsy. Rest of the ascending colon, transverse colon, descending colon, sigmoid colon, and rectum appeared normal. Rectum there was a 5 mm polyp that was removed by cold biopsy. Retroflexion was performed in the rectum and no lesions were seen. The patient tolerated the procedure well. IMPRESSION: 3 mm cecal polyp status post cold biopsy 5 mm rectal polyp status post cold biopsy RECOMMENDATIONS: Findings of this examination were discussed with the patient as well as her family. She was advised to follow with the biopsy result. If the biopsy reveals adenoma, she can have a repeat colonoscopy in 5 years..
[2023-08-29 07:56] VITALS: BP 122/87; PULSE 68
== END 2023-08-29 08:15 | disposition home or self-care (01) ==
LOC: ORWHC2ENDO 05:54
PROVIDERS: ATTEND Internal Medicine Gastroenterology
DX: Z12.11 Encounter for screening for malignant neoplasm of colon (principal); D12.0 Benign neoplasm of cecum; I10 Essential (primary) hypertension; E78.5 Hyperlipidemia, unspecified; G47.33 Obstructive sleep apnea (adult) (pediatric); K21.9 Gastro-esophageal reflux disease without esophagitis; Z79.82 Long term (current) use of aspirin; Z79.899 Other long term (current) drug therapy
CPT/HCPCS: 45380; J2405; J2704; 88305

== ENCOUNTER → 2024-07-30 | Outpatient (CLI) | payer OTHER ==
--- NOTE | 2024-07-10 14:51 | P.PN ---
Progress Note - Text Progress Note Date: 07/10/24 The patient has called regarding her upcoming bone density test. She indicates that her mother has osteoporosis. Her risk factors for osteoporosis include being a white menopausal female with a family history of osteoporosis. The order slip for a bone density test with the diagnosis code of Z82.62, family history of osteoporosis, will be mailed to the patient.
[2024-07-30 09:23] VITALS: BP 126/84; PULSE 75; RESP 17; TEMP 98.2
--- NOTE | 2024-07-30 09:44 | P.HPOB ---
History of Present Illness H&P Date: 07/30/24 Chief Complaint: The patient is here for her routine gynecologic exam and ma mmogram. This is a 58-year-old G2, P2 with an LMP of 2019. Patient is without gynecologic complaints. Review of Systems The patient's weight has been stable over the last year. She denies respiratory, cardiac, or G.I. problems. The patient states she sometimes has difficulty going to sleep at night. Past Medical History Past Medical History: Diabetes Mellitus, Hyperlipidemia, Hypertension, Musculoskeletal Disorder, Skin Disorder, Sleep Apnea/CPAP/BIPAP Additional Past Medical History / Comment(s): Type 2 diabetes. Vitiligo since she was a teenager; dermatitis face. Rt knee pain. Uses CPAP. Minor varicose veins. 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 History of Any Multi-Drug Resistant Organisms: None Reported Past Surgical History: Appendectomy, Orthopedic Surgery, Tubal Ligation Additional Past Surgical History / Comment(s): Lipoma removed off right breast. Colonoscopy 2023(next after 5yr). Right knee arthroscopic surgery. Past Anesthesia/Blood Transfusion Reactions: Motion Sickness, Postoperative Nausea & Vomiting (PONV) Past Psychological History: No Psychological Hx Reported Smoking Status: Never smoker Past Alcohol Use History: Occasional (0-4 drinks per week.) Past Drug Use History: None Reported Additional History: He has been since 1986. She previously worked at [employer] but has been retired since 2022. - Past Family History Mother Family Medical History: Cancer, Hypertension, Thyroid Disorder Additional Family Medical History / Comment(s): Breast CA @ age 73. Hypothyroid. Still living. Father Family Medical History: Congestive Heart Failure (CHF), Coronary Artery Disease (CAD), Diabetes Mellitus, Renal Disease Additional Family Medical History / Comment(s): in Nov 2019. Medications and Allergies Home Medications Medication Instructions Recorded Confirmed Type Lisinopril-Hctz 20-25 mg 1 tab PO DAILY 01/09/18 08/29/23 History [Zestoretic 20-25] Cholecalciferol [Vitamin D3 (25 125 mcg PO DAILY 03/31/20 08/29/23 History Mcg = 1000 Iu)] Multivitamin [Multivitamins Adult 1 tab PO DAILY 03/31/20 08/29/23 History Gummies] Aspirin [Adult Low Dose Aspirin EC] 81 mg PO DAILY 07/10/20 08/29/23 History Minocycline HCl [Minocin] 50 mg PO DAILY 07/10/20 08/29/23 History Acetaminophen [Tylenol Extra 500 - 1,000 mg PO DIRECTED PRN 04/23/21 08/29/23 History Strength] Calcium Carbonate/Vitamin D3 1 each PO DAILY 04/23/21 08/29/23 History [Calcium 600-Vit D3 62.5 Mcg (2,500 Iu)] Rosuvastatin Calcium [Crestor] 40 mg PO DAILY 05/17/22 08/29/23 History Ubidecarenone [Co Q-10] 300 mg PO DAILY 05/17/22 08/29/23 History metFORMIN HCL ER [Glucophage XR] 1,000 mg PO HS 07/11/23 08/29/23 History Allergies Allergy/AdvReac Type Severity Reaction Status Date / Time No Known Allergies Allergy Verified 07/30/24 09:20 Exam Vital Signs Temp Pulse Resp BP Pulse Ox 07/30/24 09:20 98.2 F 75 17 126/84 97 Intake and Output 07/29/24 07/30/24 07/30/24 22:59 06:59 14:59 Other: Weight 89.811 kg Height 5 feet 5 inches, weight 198 pounds, BMI 32.9. This is a well-developed well-nourished white female who is alert and oriented times 3 in no acute distress. HEENT: Within normal limits. NECK: Supple without mass or thyromegaly. CHEST AND LUNGS: Clear to auscultation. HEART: Regular rate and rhythm. BREASTS: Are without mass or discharge. AXILLARY EXAM: Negative for adenopathy. BACK: Negative for CVA tenderness. ABDOMEN: Soft, nontender, without palpable masses. PELVIC EXAM: Normal external genitalia with mild atrophy. Cervix and vagina appear normal with mild atrophy. There is no unusual discharge. There is no evidence of prolapse. The uterus is midposition, nongravid size and nontender. There are no palpable adnexal masses or tenderness. RECTAL EXAM: Rectovaginal exam is negative for mass or tenderness and is negative for occult blood. EXTREMITIES: Nontender. There are bilateral nonpigmented areas involving the inner thigh to the groin area consistent with vitiligo. IMPRESSION: 1. 58-year-old menopausal female with normal gynecologic exam. PLAN: 1. Pap smear was deferred since she had a negative Pap smear cotest on 05/17/2022. 2. Self breast awareness was discussed with the patient. We have also discussed symptoms associated with inflammatory breast cancer. 3. Mammogram will be done today. 4. Osteoporosis prevention was discussed. I have stressed the importance of adequate calcium, vitamin D and regular exercise. Recommended amounts of calcium and vitamin D were also discussed. Bone density was initially scheduled for today. Diagnosis code for family history of osteoporosis as well as menopausal without symptoms the patient, but she states her insurance does not cover bone density test until age 63. She canceled the bone density test for today. 5. She was advised to return in one year for her annual well woman exam.
--- NOTE | 2024-08-01 09:47 | MM ---
Reason for Exam: Screening (asymptomatic). Last screening mammogram was performed 12 month(s) ago. Patient History: Menarche at age 11. First Full-Term at age 26. Postmenopausal. Patient has history of breast feeding. 2000, Benign Excisional Biopsy on the right side. Paternal aunt had breast cancer, age 36. Mother had breast cancer, age 72. Risk Values: Nichole 5 year model risk: 3.3%. NCI Lifetime model risk: 16.2%. Prior Study Comparison: 05/11/2021 Bilateral Screening Mammogram, [facility]. 05/17/2022 Bilateral MG 3D screening mammo w/cad, [facility]. 07/11/2023 Bilateral MG 3D screening mammo w/cad, [facility]. Tissue Density: There are scattered areas of fibroglandular density. Findings: Analyzed By CAD. There is no suspicious group of microcalcifications or new suspicious mass in either breast. Overall Assessment: Benign, BI-RAD 2 Management: Screening Mammogram of both breasts in 1 year. . Patient should continue monthly self-breast exams. A clinical breast exam by your physician is recommended on an annual basis. This exam should not preclude additional follow-up of suspicious palpable abnormalities. Note on Nichole scores and lifetime risk: 1. A Nichole score greater than 3% is considered moderate risk. If this is the case, consider specialist referral to assess eligibility for a risk reducing agent. 2. If overall lifetime risk for the development of breast cancer is 20% or higher, the patient may qualify for future screening with alternating mammogram and breast MRI. [facility], , 08/01/2024 9:44 AM. Electronically signed and approved by: Graham Church M.D. Radiologis
== END ==
LOC: WWCWWP 09:04
PROVIDERS: ATTEND Obstetrics & Gynecology
CPT/HCPCS: 77063; 77067

== ENCOUNTER → 2024-08-02 | Outpatient (CLI) | payer OTHER ==
--- NOTE | 2024-08-02 14:08 | BD ---
EXAMINATION TYPE: Axial Bone Density DATE OF EXAM: 08/02/2024 CLINICAL HISTORY: 58 years old Female. ICD-10 CODE: Z78.0 Postmenopausal Height: 64 in Weight: 195 lbs FRAX RISK QUESTIONS: History of Fracture in Adulthood: rt ankle age 22 EXAM MEASUREMENTS: Bone mineral densitometry was performed using the [employer] System. Bone mineral density as measured about the Lumbar spine is: ----- L1-L4(G/cm2): 1.151 T Score Values are as follows: ----- L1: -1.1 ----- L2: -0.8 ----- L3: 0.2 ----- L4: 0.4 ----- L1-L4: -0.2 Z Score Values are as follows: ----- L1: -0.6 ----- L2: -0.3 ----- L3: 0.7 ----- L4: 0.9 ----- L1-L4: 0.2 Bone mineral density baseline Bone mineral density about the R hip (g/cm2): 0.988 Bone mineral density about the L hip (g/cm2): 0.968 T Score values are as follows: -----R Neck: -1.0 -----L Neck: -1.5 -----R Total: -0.2 -----L Total: -0.3 Z Score values are as follows: -----R Neck: -0.2 -----L Neck: -0.7 -----R Total: 0.3 -----L Total: 0.1 Bone mineral density baseline FRAX%s: The graph provided illustrates a 13.1% chance for a major osteoporotic fx and a 1.1% chance f or the hips probability for fx in 10 years time. IMPRESSION: Normal (Values between +1 and -1 indicate normal bone mass). Consider repeating this study in 5 year s or sooner if there is some new clinical indication. NOTE: T-SCORE=SD OF THE YOUNG ADULT MEAN. [facility], , 08/02/2024 2:05 PM
== END | disposition home or self-care (01) ==
LOC: RADBDWWP 12:34
PROVIDERS: ATTEND Obstetrics & Gynecology
CPT/HCPCS: 77080

== ENCOUNTER → 2025-04-24 | Outpatient (CLI) | payer BC ==
--- NOTE | 2025-04-24 09:54 | US ---
EXAMINATION TYPE: US abdomen complete DATE OF EXAM: 04/24/2025 COMPARISON: CT 2019 CLINICAL INDICATION: Female, 59 years old with history of R16.0 HEPATOMEGALY; Pt states recent CT at outside facility showed enlarged liver TECHNIQUE: Grayscale and color Doppler imaging of the abdomen was performed. FINDINGS: EXAM MEASUREMENTS: Liver Length: 18.9 cm Gallbladder Wall: 0.2 cm CBD: 8.6 mm, color Doppler imaging was utilized to isolate the common bile duct for measurement. 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 Diffusely heterogeneous and echogenic parenchyma. 2.5 cm oval hypoechoic are a, probable fatty sparing near rikki hepatis. No focal lesion otherwise seen. Gallbladder: Slightly contracted, pt states she is NPO Evidence for sonographic Avitia's sign: No CBD: Mildly dilated. Spleen: wnl Right Kidney: wnl, No hydronephrosis, calculi or masses seen Left Kidney: wnl, No hydronephrosis, calculi or masses seen, upper pole gassed out Upper IVC: wnl Abd Aorta: wnl IMPRESSION: 1. Mild hepatomegaly of 18.9 cm with severe hepatic steatosis. Appropriate clinical management is adv ised. 2. An oval 2.5 cm hypoechoic area at the rikki hepatis favored to represent focal fatty sparing. Favio mmend 6 month follow-up ultrasound to ensure a stable appearance. 3. No gallstones or hydropic gallbladder change. However, the bile duct is dilated at 8.6 mm. This ma y be chronic for the patient. Correlate with alkaline phosphatase and bilirubin levels to exclude farzana iary obstruction. [facility], , 04/24/2025 9:52 AM
== END | disposition home or self-care (01) ==
LOC: RADUSWWP 08:54
DX: R16.0 Hepatomegaly, not elsewhere classified (principal); K76.0 Fatty (change of) liver, not elsewhere classified; K83.8 Other specified diseases of biliary tract
CPT/HCPCS: 76700